=== PATIENT | male | born 1990 | race Caucasian/White ===

== ENCOUNTER 2020-05-28 18:55 | Emergency (ER) | payer MEDICAID, MEDICARE ==
[~2020-05-28] VITALS: Ht 180.3 cm; Wt 62.4 kg
[2020-05-28 19:13] VITALS: BP 128/73
--- NOTE | 2020-05-28 19:20 | NUR ---
Patient presents to ER from [facility] on a L2K. He was making numerous delusional statements to staff there and reported no need for sleep. Patient denies SI/HI to this RN. Patient is disheveled and making multiple inappropriate comments to females. Urine collected, room secured, belongings locked in cabinet, sitter outside.
[2020-05-28 19:35] LABS: BASOPHILS # (AUTO) 0.02 x10^3/uL (0-0.1); BASOPHILS % (AUTO) 1 % (0-1); EOSINOPHILS # (AUTO) 0.11 x10^3/uL (0-0.4); EOSINOPHILS % (AUTO) 2 % (1-7); LYMPHOCYTES # (AUTO) 1.46 x10^3/uL (1-3.4); LYMPHOCYTES % (AUTO) 32 % (22-44); MD NO; MEAN CORPUSCULAR HEMOGLOBIN 33.5 pg (27.5-34.5); MEAN CORPUSCULAR HGB CONC 34.8 g/dL (33.2-36.2); MEAN CORPUSCULAR VOLUME 96.5 fL (81-97); MEAN PLATELET VOLUME 8.1 fL (7.4-10.4); MONOCYTES # (AUTO) 0.48 x10^3/uL (0.2-0.8); MONOCYTES % (AUTO) 11 % (2-9); NEUTROPHILS # (AUTO) 2.47 x10^3/uL (1.8-6.8); NEUTROPHILS % (AUTO) 55 % (42-75); PLATELET COUNT 263 x10^3/uL (130-400); RED BLOOD COUNT 4.38 x10^6/uL (4.38-5.82); RED CELL DISTRIBUTION WIDTH 13.5 % (9.4-14.8)
[2020-05-28 19:41] LABS: ALANINE AMINOTRANSFERASE 22 U/L (12-78); ALBUMIN 3.9 g/dL (3.4-5.0); ANION GAP 5 mmol/L (5-15); CALCIUM 8.6 mg/dL (8.5-10.1); CHLORIDE 108 mmol/L (98-107); CREATININE 0.76 mg/dL (0.7-1.3)
[2020-05-28 19:43] LABS: AMPHETAMINE SCREEN, URINE Negative (Negative); BARBITURATE SCREEN, URINE Negative (Negative); BENZODIAZEPINE SCREEN, URINE Negative (Negative); CANNABINOID SCREEN, URINE Positive (Negative); COCAINE SCREEN, URINE Negative (Negative); METHADONE SCREEN, URINE Negative (Negative); OPIATE SCREEN, URINE Negative (Negative)
[2020-05-28 19:43] LABS: ALKALINE PHOSPHATASE 82 U/L (45-117); BILIRUBIN,TOTAL 0.4 mg/dL (0.2-1.0); SALICYLATE LEVEL 1.8 mg/dL (2.8-20.0); TOTAL PROTEIN 7.1 g/dL (6.4-8.2)
--- NOTE | 2020-05-28 19:45 | NUR ---
Patient pacing the room and yelling inappropriate comments.
--- NOTE | 2020-05-28 20:00 | NUR ---
Provided food. Patient states he is vegetarian but accepted a meat sandwich.
--- NOTE | 2020-05-28 20:42 | NUR ---
Patient is calm at this time and resting in gurney. Respirations even and unlabored. Room secured, belongings locked in cabinet, sitter outside.
--- NOTE | 2020-05-28 21:50 | NUR ---
Patient sleeping in rney. Respirations even and unlabored. Room secured, belongings locked in cabinet, sitter outside.
--- NOTE | 2020-05-28 22:29 | NUR ---
JOSE LUIS RN: PACKET FAXED TO [facility] [place], MARCELLO GARCIA.
--- NOTE | 2020-05-28 22:29 | NUR ---
Patient sleeping in rney. Respirations even and unlabored. Room secured, belongings locked in cabinet, sitter outside.
--- NOTE | 2020-05-28 22:30 | NUR ---
MT: JOSÉ MIGUEL FROM [facility] CALLED TO ACCEPT PT FOR 0030. ACCEPTING DR WILL BE DR OJEAD.
--- NOTE | 2020-05-28 23:06 | NUR ---
[facility] CALLED REGARDING TRANSPORT FOR PATIENT. PATIENT'S TRANSPORT WILL BE SET UP FOR 0030 ON 05/29/2020. [facility] IS ABLE TO SET UP TRANSPORT PRIOR TO AUTHORIZATION, WILL CALL [facility] AFTER AUTHORIZATION IS SET UP.
--- NOTE | 2020-05-28 23:23 | NUR ---
Report given to MELINA Ruiz at [facility]. Patient to be transferred around 0030. Patient sleeping in [facility]. Respirations even and unlabored. Room secured, belongings in locked cabinet, sitter outside.
--- NOTE | 2020-05-29 01:00 | NUR ---
Report given to [facility]. Patient transported to [place]. Belongings given to EMS.
== END 2020-05-29 01:01 ==
LOC: ED 19:25
DX: F22 Delusional disorders (principal); F17.290 Nicotine dependence, other tobacco product, uncomplicated
CPT/HCPCS: 36415; 80053; 80307; 85025; 99285

== ENCOUNTER 2020-06-10 16:59 | Emergency (ER) | payer MEDICAID ==
[~2020-06-10] VITALS: Ht 165.1 cm; Wt 55.0 kg
[2020-06-10 17:14] VITALS: BP 125/72
--- NOTE | 2020-06-10 17:21 | NUR ---
pt in secured environment, belongings placed in locker, begin 1:1 observation
--- NOTE | 2020-06-10 17:57 | NUR ---
pt cleared from hold, d/c with securityy belongings returned
== END 2020-06-10 18:05 | disposition home or self-care (01) ==
LOC: ED 17:30
DX: F29 Unspecified psychosis not due to a substance or known physiological condition (principal); F22 Delusional disorders
CPT/HCPCS: 99283